=== PATIENT | female | born 1955 | race Two or more races ===

== ENCOUNTER 2024-09-03 11:17 | Emergency (ER) | payer OTHER, SELFPAY ==
[2024-09-03 11:19] VITALS: BMI 32.2
--- NOTE | 2024-09-03 11:23 | EKG_ITS ---
[facility] Test Date: 2024-09-03 Pat Name: CHARLOTTE GORDILLO Department: Room: - Gender: Female Manager Analytical: : 1955 Requested By: ED Temporary Provider Order Number: [id number] Reading MD: ED Temporary Provider Measurements Intervals Viola Rate: 64 P: 15 GA: 167 QRS: 22 QRSD: 84 T: 43 QT: 388 QTc: 401 Interpretive Statements SINUS RHYTHM MINIMAL VOLTAGE CRITERIA FOR LVH, CONSIDER NORMAL VARIANT [MEETS CRITERIA IN ONE OF: R(aVL), S(V1), R(V5), R(V5/V6)+S(V1)] Compared to ECG 05/12/2023 11:15:48 No significant changes /store/S0/[id number]/ecg/[id number].pdf
[2024-09-03 12:03] VITALS: BP 222/118; PULSE 68; RESP 18; TEMP 36.9; O2SAT 98
--- NOTE | 2024-09-03 12:11 | XR_ITS ---
Examination: CT brain head without contrast. 2-D sagittal coronal reconstructions Date and time of exam:September 03, 2024 1229 hours INDICATIONS: Generalized head pain and left arm numbness today CTDI: vol (mGy):47.5 DLP: (mGycm):868 Technique: Multiple CT axial sections of the brain have been obtained, 5 mm slice thickness. Contrast has not been administered. 2-D sagittal, coronal reconstructions have been obtained Low dose protocols were performed. One or more of the following dose reduction techniques were used; automated exposure control, adjustment of the mA and/or KV according to patient size, use of iterative reconstruction technique. Findings: No significant ventricular enlargement. Intra-axial or extra-axial hemorrhage density is not seen. No mass effect or midline shift Basal cisterns are not remarkable. Fourth ventricle is midline. Cranial vault intact. Impression: Negative for acute hemorrhage, mass effect or midline shift Advise clinical correlation and follow-up accordingly
--- NOTE | 2024-09-03 12:11 | XR_ITS ---
Examination: Shoulder,left, 3 views Technique: Shoulder AP internal rotation, AP external rotation, Y view shoulder, 3 views Exam date and time :September 03, 2024 1251 hours INDICATIONS: Left shoulder pain beginning 2 days ago. FINDINGS: Moderate osteopenia. Prominent calcific tendinitis No fracture or shoulder dislocation Mild osteoarthritis glenohumeral joint Impression: Prominent left shoulder calcific tendinitis
--- NOTE | 2024-09-03 12:11 | XR_ITS ---
Examination: PA lateral chest 2 views TECHNIQUE: Upright PA lateral chest 2 views Exam date and time: September 03, 2024 1254 hours INDICATIONS: Chest pain beginning 2 days ago. FINDINGS: Normal heart size. Lungs are clear. The osseous structures are intact IMPRESSION: No active disease
--- NOTE | 2024-09-03 12:12 | PD.EDRME ---
Rapid Medical Screening Exam RME Arrival date/time: 09/03/24 11:17 69-year-old female presents to the emergency department today with complaints of left shoulder pain left arm pain Chief Complaint: Extremity Problem,Nontraumatic Vital signs: Vital Signs Temperature 98.5 F 09/03/24 12:03 Pulse Rate 68 09/03/24 12:03 Respiratory Rate 18 09/03/24 12:03 Blood Pressure 222/118 H 09/03/24 12:03 Pulse Oximetry (%) 98 09/03/24 12:03 Oxygen Delivery Method Room Air 09/03/24 12:03
[2024-09-03 12:18] VITALS: BP 223/118; PULSE 69
[2024-09-03] MEDS: cloNIDine HCL 0.1 MG TABLET 0.2 MG PO (12:18)
[2024-09-03] MEDS: DIAZEPAM 5 MG TABLET 10 MG PO (12:23)
[2024-09-03 12:57] LABS: Basophils % (Auto) 0 % (0-2.5); Eosinophils # (Auto) 0.1 Thou/mm3 (0.0-0.5); Eosinophils % (Auto) 1 % (0-10); Hematocrit 40.6 % (36.0-46.0); Immature Granulocytes % (Auto) 0 % (0-0); Immature Granulocytes Auto 0.01 Thou/mm3 (0.00-0.00); Lymphocytes # (Auto) 1.7 Thou/mm3 (1.0-4.8); Lymphocytes % (Auto) 23 % (10-50); Mean Corpuscular HGB Conc 34.5 g/dl (31.0-37.0); Mean Corpuscular Hemoglobin 32.9 pg (25.0-35.0); Mean Corpuscular Volume 96 fL (80-100); Monocytes # (Auto) 0.4 Thou/mm3 (0.0-0.8); Monocytes % (Auto) 5 % (0-12); Neutrophils # (Auto) 5.2 Thou/mm3 (1.8-7.7); Neutrophils % (Auto) 71 % (37-80); Nucleated Red Blood Cell % 0 /100 WBC (0); Platelet Count 221 Thou/mm3 (140-440); RDW Standard Deviation 41.7 fL (36.4-46.3); Red Blood Count 4.25 Miln/mm3 (4.00-5.20); White Blood Count 7.3 Thou/mm3 (3.6-11.0)
[2024-09-03 13:09] LABS: B-Type Natriuretic Peptide 45 pg/mL (0-100); Partial Thromboplastin Time 26.4 Seconds (22.0-36.0); Prothrombin Time 10.9 Seconds (9.0-12.2)
[2024-09-03 13:13] LABS: Alanine Aminotransferase 13 U/L (10-49); Albumin, Serum 4.5 gm/dL (3.4-4.8); Albumin/Globulin Ratio 1.6 (1.2-2.2); Alkaline Phosphatase 160 U/L (46-116); Anion Gap 7 (7-16); Aspartate Amino Transferase 20 U/L (0-34); BUN/Creatinine Ratio 17 Ratio (12-20); Bilirubin,Total 0.6 mg/dL (0.3-1.2); Blood Urea Nitrogen 12 mg/dL (9-23); Calcium 9.3 mg/dL (8.3-10.6); Calcium (Corrected) 9.3 mg/dL (8.5-10.1); Carbon Dioxide 26.6 mMol/L (20.0-31.0); Chloride 106 mMol/L (98-107); Creatinine (Component) 0.7 mg/dL (0.6-1.3); Estimated Creatinine Clearance 68.5 mL/min (>60); Globulin 2.8 gm/dL (2.3-3.5); Glucose 103 mg/dL (74-106); Osmolality,Calculated 279 (275-295); Potassium 3.9 mMol/L (3.4-5.1); Sodium 140 mMol/L (136-145); Total Protein 7.3 gm/dL (5.7-8.2); Troponin I < 0.020 ng/mL (0.0-0.045); eGFR > 60 See Note
[2024-09-03 14:07] VITALS: BP 128/80; PULSE 64; RESP 16; TEMP 36.7; O2SAT 96
--- NOTE | 2024-09-03 14:13 | PD.EDEXREM ---
ED Extremity Problem RME/HPI General Chief complaint: Extremity Problem,Nontraumatic Stated complaint: LEFT ARM PAIN/HAND NUMB SINCE 0800 YESTERDAY Time Seen by Provider: 09/03/24 13:51 Arrival date/time: 09/03/24 11:17 LOCATION: Shoulder SEVERITY: Symptoms are described as being severe with limitations on activities of daily living QUALITY: Symptoms are described as being dull or achy CONTEXT: unknown DURATION/TIMING: The symptoms started approximately 1 day ago and have been constant this then. ASSOCIATED SYMPTOMS: The patient is unable to identify any other associated symptoms. MODIFYING FACTORS: The patient is unable to identify any alleviating or aggravating symptoms. PERTINENT ROS: no fevers, no headache, no neck or chest pain, no unexplained nausea or vomiting, no focal neurological deficits no chest pain/shortness of breath no syncope/loc no behavior changes REVIEW OF SYSTEMS: See History of Present Illness - with the exception of those mentioned in the history of present illness, all other systems reviewed and reported as negative GENERAL: In general the patient is awake, interactive, in an emergency department gurney. HEAD/EYES/EARS/NOSE/THROAT: normo-cephalic, atraumatic, mucus membranes are moist, anicteric, palpebral conjunctiva is pink, trachea is midline. CARDIOVASCULAR: regular rate and regular rhythm, no murmurs, heart sounds are not distant, strong pulses in all four extremities that are equal and symmetric bilateral upper and lower extremities, normal capillary refill. CHEST/PULMONARY: normal chest rise and fall, good air movement, clear to auscultation bilaterally, normal inspiratory to expiratory ratios without evidence of respiratory distress. NECK: No midline/Paraspinal tenderness, no step off ROM/Strenght intact No Kernig and bruzinski sign. No trauma ABDOMEN: soft, not tender, no masses appreciated BACK: normal range of motion without pain. NEUROLOGICAL: cranio-facial features are symmetric, moves all four extremities equally without obvious limitations or weakness. EXTREMITY: + left shoulder tenderness, no sign of infection or trauma. no tenderness to palpation over the long bones or large joints of the bilateral lower extremities, no joint swelling, no joint erythema, no signs of trauma, no unilateral leg swelling and no peripheral edema. SKIN: warm, dry, well-perfused, no jaundice, no rash, no telangiectasias or petechia. PSYCH: calm, cooperative, no evidence of psychosis or agitation RME / HPI RME / HPI Narrative: 09/03/24 11:17 69-year-old female presents to the emergency department today with complaints of left shoulder pain left arm pain Related Data Home Medications ?Medication ?Instructions ?Recorded ?Confirmed amlodipine 10 mg tablet 10 mg PO QDAY 10/29/20 10/30/20 atorvastatin 10 mg tablet 10 mg PO QDAY 10/29/20 10/30/20 levothyroxine 50 mcg tablet 50 mcg PO QDAY 10/29/20 10/30/20 losartan 100 1 tab PO QDAY 10/29/20 10/30/20 mg-hydrochlorothiazide 12.5 mg tablet Previous Rx's ?Medication ?Instructions ?Recorded docusate sodium 100 mg capsule 100 mg PO BID #40 caps 10/30/20 (Colace) hydrocodone 5 mg-acetaminophen 325 1 tab PO Q6H PRN pain (scale score 10/30/20 mg tablet 7-10) #20 tabs ibuprofen 600 mg tablet 600 mg PO Q8H PRN pain (scale 10/30/20 score 4-6) #15 tabs meloxicam 7.5 mg tablet 7.5 mg PO QDAY OA, PAIN #30 tabs 09/03/24 Allergies Allergy/AdvReac Type Severity Reaction Status Date / Time Penicillins Allergy Severe Rash Verified 09/03/24 11:22 Course Course Course Narrative: plan review of labs, ct, cxr and shoulder xray labs unremarkable blood pressure improved with medication given xray: + OA ct: negative cxr nad pain improved with toradol 30mg IM advised to avoid other NSAID with taking MOBIC Quality Measures none Orders Category Date Time Status EKG (ED ONLY) *Do not use* NOW Care 09/03/24 11:[address] head/brain wo con Stat Exams 09/03/24 12:11 Completed EKG (ED Only) Stat Exams 09/03/24 11:23 Draft XR chest 2V Stat Exams 09/03/24 12:11 Completed XR shoulder LT min 2V Stat Exams 09/03/24 12:11 Completed B-Type Natriuretic Peptide Stat Lab 09/03/24 12:18 Completed CBC Stat Lab 09/03/24 12:18 Completed Comprehensive Metabolic Panel Stat Lab 09/03/24 12:18 Completed Magnesium Stat Lab 09/03/24 12:18 Completed Partial Thromboplastin Time Stat Lab 09/03/24 12:18 Completed Prothrombin Time with INR Stat Lab 09/03/24 12:18 Completed Troponin I Stat Lab 09/03/24 12:18 Completed Diazepam [Valium] Med 09/03/24 12:11 Discontinued 10 mg PO X1 ONE Ketorolac Inj [Toradol Inj] Med 09/03/24 14:10 Discontinued 30 mg IM X1 ONE cloNIDine HCL [Catapres] Med 09/03/24 12:11 Discontinued 0.2 mg PO X1 ONE Reevaluation(s) Reevaluation #1: sx improved. blood pressure improved. Vital Signs Vital signs: Vital Signs Temperature 98.5 F 09/03/24 12:03 Pulse Rate 68 09/03/24 12:03 Respiratory Rate 18 09/03/24 12:03 Blood Pressure 222/118 H 09/03/24 12:03 Pulse Oximetry (%) 98 09/03/24 12:03 Oxygen Delivery Method Room Air 09/03/24 12:03 Procedures -ED EKG Interpretation #1: Date of EK09/03/24 Rate: 64 Interpretation: Reviewed by me EKG Impression: Normal sinus rhythm, No acute ST-T changes, No ectopy, No ischemic changes and Normal QRS Extremity Problem Patient data External records reviewed:: [facility] previous records Clinical information provided by:: patient Social determinants that could affect healthcare access:: none Patient has the following chronic illnesses:: HTN, HDL, DM How is presenting disease/condition affected by chronic disease/condition?: exacerbated by Evaluation data The following diagnostics were reviewed and interpreted by me:: lab results, radiology exam(s) and EKG tracing(s) Lab and/or radiology exams considered but not ordered:: none Interpretation Summary: as stated in chart Medications / Prescriptions Medications or Prescriptions considered but not ordered:: as directed Medication administrations:: Medication Administration History Discontinued Medications Clonidine (Clonidine Hcl 0.1 Mg Tablet) 0.2 mg PO X1 ONE Stop: 09/03/24 12:12 Last Admin: 09/03/24 12:18 Dose: 0.2 mg Documented By: CLARENCE Diazepam (Diazepam 5 Mg Tablet) 10 mg PO X1 ONE Stop: 09/03/24 12:12 Last Admin: 09/03/24 12:23 Dose: 10 mg Documented By: Admin: 09/03/24 12:18 Dose: Not Given Documented By: DB Non-Admin Reason: Contaminated/Dropped Ketorolac Tromethamine (Ketorolac Inj 60 Mg/2 Ml Vial) 30 mg IM X1 ONE Stop: 09/03/24 14:11 as stated above Consultations Consultation(s) initiated? (list below): No Diagnosis Extremity Problem Differential Diagnosis: other (Mi/nstemi, OA, fracture/dislocation, PNA, Stroke ) Most likely diagnosis given after review of the tests above:: OA of shoulder, Admission Indicated Admission indicated?: not indicated Admission Request Was there a request for admission?: No Disposition Plan Disposition Plan: Discharge Discharge Attestation Discharge Attestation: The patient and all family members were given an opportunity to ask questions and understood the discharge instructions. Discharge instructions specifically effects, indications for sooner follow up or return to the emergency department, and the expected course of current diagnosis. Patient condition: Stable Discharge Plan Plan Patient Disposition: HOME (Self Care) Health Concerns: Follow up with PMD as directed avoid taking other IBU or NSAID while one Mobic Return to Ed if symptoms worsen Prescriptions/Referrals Prescriptions/Med Rec: New meloxicam 7.5 mg tablet 7.5 mg PO QDAY Qty: 30 0RF No Action atorvastatin 10 mg Tablet 10 mg PO QDAY amlodipine 10 mg Tablet 10 mg PO QDAY levothyroxine 50 mcg Tablet 50 mcg PO QDAY losartan-hydrochlorothiazide 100-12.5 mg Tablet 1 tab PO QDAY hydrocodone-acetaminophen 5-325 mg tablet 1 tab PO Q6H MDD 4 PRN (Reason: pain (scale score 7-10)) Qty: 20 0RF docusate sodium [Colace] 100 mg capsule 100 mg PO BID Qty: 40 0RF ibuprofen 600 mg tablet 600 mg PO Q8H PRN (Reason: pain (scale score 4-6)) Qty: 15 0RF Problem List Clinical Impression: OA (osteoarthritis) of shoulder Patient/Caregiver Discharge Instructions Education Materials: What Is Osteoarthritis? Print Language: Estonian Stand Alone Forms: Rafaela Award Info., Patient Portal Info Letter
[2024-09-03] MEDS: KETOROLAC INJ 60 MG/2 ML VIAL 30 MG IM (14:15)
== END 2024-09-03 14:25 | disposition home or self-care (01) ==
LOC: SERX 15:04
PROVIDERS: Nurse Practitioner Primary Care; Emergency Provider Emergency Medicine; PCP Internal Medicine
DX: M19.012 Primary osteoarthritis, left shoulder (principal); I10 Essential (primary) hypertension; E11.9 Type 2 diabetes mellitus without complications; E78.5 Hyperlipidemia, unspecified
CPT/HCPCS: 36415; 70450; 71046; 73030; 80053; 83735; 83880; 84484; 85025; 85610; 85730; 93005; 96372; 99284; J1885; A9270

== ENCOUNTER → 2024-10-18 | Outpatient (CLI) | payer MEDICARE, MEDICAID, SELFPAY ==
[2024-10-18 11:45] LABS: Basophils % (Auto) 1 % (0-2.5); Eosinophils # (Auto) 0.1 Thou/mm3 (0.0-0.5); Eosinophils % (Auto) 2 % (0-10); Hematocrit 40.5 % (36.0-46.0); Hemoglobin 13.8 g/dL (12.0-16.0); Immature Granulocytes % (Auto) 0 % (0-0); Immature Granulocytes Auto 0.01 Thou/mm3 (0.00-0.00); Lymphocytes # (Auto) 1.3 Thou/mm3 (1.0-4.8); Lymphocytes % (Auto) 24 % (10-50); Mean Corpuscular HGB Conc 34.1 g/dl (31.0-37.0); Mean Corpuscular Hemoglobin 32.8 pg (25.0-35.0); Mean Corpuscular Volume 96 fL (80-100); Monocytes # (Auto) 0.3 Thou/mm3 (0.0-0.8); Monocytes % (Auto) 6 % (0-12); Neutrophils # (Auto) 3.5 Thou/mm3 (1.8-7.7); Neutrophils % (Auto) 67 % (37-80); Nucleated Red Blood Cell % 0 /100 WBC (0); Platelet Count 235 Thou/mm3 (140-440); RDW Standard Deviation 42.3 fL (36.4-46.3); Red Blood Count 4.21 Miln/mm3 (4.00-5.20); White Blood Count 5.2 Thou/mm3 (3.6-11.0)
[2024-10-18 11:46] LABS: Glucose Estimated Average 108 mg/dL (80-131); Hemoglobin A1C 5.4 % Hgb (4.8-6.0)
[2024-10-18 11:59] LABS: Alanine Aminotransferase 17 U/L (10-49); Albumin, Serum 4.3 gm/dL (3.4-4.8); Albumin/Globulin Ratio 1.8 (1.2-2.2); Alkaline Phosphatase 167 U/L (46-116); Anion Gap 8 (7-16); Aspartate Amino Transferase 20 U/L (0-34); BUN/Creatinine Ratio 17 Ratio (12-20); Bilirubin,Total 0.6 mg/dL (0.3-1.2); Blood Urea Nitrogen 15 mg/dL (9-23); Calcium 9.4 mg/dL (8.3-10.6); Calcium (Corrected) 9.4 mg/dL (8.5-10.1); Carbon Dioxide 24.8 mMol/L (20.0-31.0); Cardiac Risk Estimate 2.7 RATIO (3.7-5.6); Chloride 107 mMol/L (98-107); Cholesterol 179 mg/dL (132-200); Creatinine (Component) 0.9 mg/dL (0.6-1.3); Globulin 2.4 gm/dL (2.3-3.5); Glucose 95 mg/dL (74-106); HDL Cholesterol 67 mg/dL (40-60); LDL Cholesterol,Calculated 85 mg/dL (0-130); Osmolality,Calculated 280 (275-295); Potassium 4.8 mMol/L (3.4-5.1); Sodium 140 mMol/L (136-145); Thyroid Stimulating Hormone 4.13 uIU/mL (0.55-4.78); Total Protein 6.7 gm/dL (5.7-8.2); Triglycerides 133 mg/dL (30-150); eGFR > 60 See Note
[2024-10-18 12:10] LABS: Syphilis Nonreactive (Nonreactive)
[2024-10-18 12:52] LABS: Hepatitis A Antibody IgM Non Reactive (Non React); Hepatitis B Core Antibody IgM Non Reactive (Non React); Hepatitis B Surface Antigen Non Reactive (Non React); Hepatitis C Antibody Non Reactive (Non React)
[2024-10-18 16:40] LABS: Chlamydia trachomatis PCR Negative (Not Detect); Neisseria Gonorrhoeae DNA PCR Negative (Not Detect); Trichomonas Negative (Negative)
[2024-10-22 07:07] LABS: HIV Ag/Ab, 4th Gen NON-REACTIVE
== END | disposition home or self-care (01) ==
PROVIDERS: PCP Internal Medicine; Referring Provider Internal Medicine; Visit Provider Internal Medicine
DX: Z00.00 Encounter for general adult medical examination without abnormal findings (principal); Z11.3 Encounter for screening for infections with a predominantly sexual mode of transmission; Z13.6 Encounter for screening for cardiovascular disorders; E03.9 Hypothyroidism, unspecified; E78.5 Hyperlipidemia, unspecified; R73.03 Prediabetes
CPT/HCPCS: 36415; 80053; 80061; 80074; 83036; 84443; 85025; 86780; 87389; 87491; 87591; 87661

== ENCOUNTER 2024-11-09 06:40 | Day surgery (SDC) | payer MEDICARE, MEDICAID, SELFPAY ==
[2024-11-09] VITALS (9 sets, daily range): BP systolic 127–215; BP diastolic 48–133; PULSE 62–76; RESP 15–22; TEMP 36.2–36.8; O2SAT 98–100; BMI 34.7
[2024-11-09] MEDS: SODIUM CHLORIDE 0.9% 500 ML 500 ML 100 ML IV (07:58)
[2024-11-09] MEDS: DiphenhydrAMINE INJ 50 MG/ML VIAL 25 MG IV (07:59)
[2024-11-09] MEDS: SIMETHICONE 40 MG/0.6 ML ORAL SYRINGE PO (08:00)
[2024-11-09] MEDS: MIDAZOLAM INJ 1 MG/ML VIAL 2 ML (ASD USE ONLY) 2 MG IV (08:03)
[2024-11-09] MEDS: fentaNYL CIT INJ 50 mCg/ML AMP 2ML (ASD USE ONLY) IV (08:03)
[2024-11-09] MEDS: hydrALAZINE INJ 20 MG/ML VIAL 10 MG IV (08:10)
== END 2024-11-09 09:05 | disposition home or self-care (01) ==
PROVIDERS: PCP Internal Medicine; Referring Provider Surgery; Visit Provider Surgery
PROC: 0DBE8ZX Excision of Large Intestine, Via Natural or Artificial Opening Endoscopic, Diagnostic (ICD-10-PCS; CPT 45380; principal; 2024-11-09 08:00)
DX: Z12.11 Encounter for screening for malignant neoplasm of colon (principal); Z12.12 Encounter for screening for malignant neoplasm of rectum; K51.40 Inflammatory polyps of colon without complications; K64.4 Residual hemorrhoidal skin tags; K64.8 Other hemorrhoids; K57.30 Diverticulosis of large intestine without perforation or abscess without bleeding; K62.89 Other specified diseases of anus and rectum; E78.00 Pure hypercholesterolemia, unspecified; I10 Essential (primary) hypertension; E03.9 Hypothyroidism, unspecified; Z90.710 Acquired absence of both cervix and uterus; Z90.49 Acquired absence of other specified parts of digestive tract; Z90.722 Acquired absence of ovaries, bilateral; Z90.79 Acquired absence of other genital organ(s); Z79.899 Other long term (current) drug therapy; Z79.890 Hormone replacement therapy
CPT/HCPCS: 45385; J0360; J1200; J2250; J3010; J7040; A9270

== ENCOUNTER → 2025-07-02 | Outpatient (CLI) | payer MEDICARE, MEDICAID, SELFPAY ==
--- NOTE | 2025-07-02 14:15 | XR_ITS ---
Examination: Screening digital mammography, bilateral Computer aided detection 3-D breast Tomosynthesis, bilateral Date and time of exam: 07/02/2025, 2:07 p.m. Comparisons: 03/19/2024 Indications: Screening Technique: Nonmagnified MLO, CC views of the breasts to been obtained, reconstructed from 3-D Tomosynthesis images. R2 computer aided detection program utilized for evaluation of suspicious masses and/or abnormal calcifications. 3-D Tomosynthesis images obtained. Technologist: Findings: There are scattered areas of fibroglandular density. No evidence of abnormal masses or suspicious calcifications. Impression: BI-RADS category 1: Negative findings (within normal) Recommend 1 year follow-up mammogram
== END | disposition home or self-care (01) ==
PROVIDERS: Referring Provider Internal Medicine; Visit Provider Internal Medicine
DX: Z12.31 Encounter for screening mammogram for malignant neoplasm of breast (principal); R92.313 Mammographic fatty tissue density, bilateral breasts
CPT/HCPCS: 77063; 77067